=== PATIENT | male | born 1960 | race Caucasian/White ===

== ENCOUNTER 2022-08-15 08:00 | Observation (INO) | payer MEDICARE, MEDICAID ==
[~2022-08-15 08:00] MED LIST: Lactated Ringers 1,000 ML IV SCH; Sodium Chloride 0.9% 10 ML Syringe FLUSH PRN
[2022-08-15 08:38] LABS: BASOPHILS ABSOLUTE AUTO 0.01 K/mm3 (0.01-0.08); BASOPHILS PERCENT AUTO 0.2 % (0.1-1.2); EOSINOPHILS ABSOLUTE AUTO 0.15 K/mm3 (0.04-0.54); EOSINOPHILS PERCENT AUTO 2.7 (0.8-7.0); HEMATOCRIT 44.3 % (40.1-51.0); HEMOGLOBIN 14.9 gm/dl (13.7-17.5); IMMATURE GRAN ABSOLUTE AUTO 0.01 K/mm3 (0.00-0.10); IMMATURE GRAN PERCENT AUTO 0.2 % (<=1.0); LYMPHOCYTES ABSOLUTE AUTO 1.75 K/mm3 (1.32-3.57); LYMPHOCYTES PERCENT AUTO 31.4 % (21.8-53.1); MEAN CORPUSCULAR HEMOGLOBIN 31.5 pg (25.7-32.2); MEAN CORPUSCULAR HGB CONC 33.6 g/dl (32.2-35.5); MEAN CORPUSCULAR VOLUME 93.7 fl (79.0-92.2); MEAN PLATELET VOLUME 10.4 fl (9.4-12.3); MONOCYTES ABSOLUTE AUTO 0.63 K/mm3 (0.30-0.82); MONOCYTES PERCENT AUTO 11.3 % (5.3-12.2); NEUTROPHILS ABSOLUTE AUTO 3.02 K/mm3 (1.78-5.38); NEUTROPHILS PERCENT AUTO 54.2 % (34.0-67.9); PLATELET COUNT,PLT 209 K/mm3 (163-337); RED BLOOD CELL COUNT 4.73 M/mm3 (4.63-6.08); WHITE BLOOD CELL COUNT,WBC 5.57 K/mm3 (4.23-9.07)
[2022-08-15 08:45] LABS: ANION GAP 13.5 (5-15); CALCIUM 8.9 mg/dL (8.5-10.1); EST CRCL DRUG DOSING (CG) 70.42 mL/min; POTASSIUM,K 3.5 mEq/L (3.5-5.1)
[2022-08-15] MEDS ORDERED: Lidocaine 1% 50 ML MDV ONE (08:54)
[2022-08-15] MEDS ORDERED: Bupivacaine 0.5%/EPINEPHrine 1:200,000 50 ML MDV ONE (08:54)
[2022-08-15] MEDS ORDERED: Phenylephrine 1% 10 MG/ML SDV ONE (09:29)
[2022-08-15] MEDS ORDERED: Propofol 200 MG/20 ML SDV ONE (09:30)
[2022-08-15] MEDS ORDERED: Rocuronium 50 MG/5 ML Vial ONE (09:30)
[2022-08-15] MEDS ORDERED: fentaNYL 250 MCG/5 ML SDV ONE (09:30)
[2022-08-15] MEDS ORDERED: Midazolam 1 MG/ML 2 ML SDV ONE (09:30)
[2022-08-15] MEDS ORDERED: Lidocaine 1% 5 ML VIAL ONE (09:30)
[2022-08-15] MEDS ORDERED: ceFAZolin 2 GM Vial ONE (10:28)
[2022-08-15] MEDS ORDERED: Dexamethasone 4 MG/ML 5 ML MDV ONE (10:31)
[2022-08-15] MEDS ORDERED: Ondansetron 4 MG/2 ML SDV ONE ×2 (10:31→13:08)
[2022-08-15] MEDS ORDERED: Lactated Ringers 1,000 ML ONE (11:27)
[2022-08-15] MEDS ORDERED: Ondansetron 4 MG/2 ML SDV IVPUSH PRN ×2 (12:41→13:01)
[2022-08-15] MEDS ORDERED: Docusate Sodium 100 MG Cap PO PRN (12:41)
[2022-08-15] MEDS ORDERED: Morphine 2 MG/ML SYRINGE IVPUSH PRN (12:41)
[2022-08-15] MEDS ORDERED: ALPRAZolam 0.25 MG Tab PO PRN (12:47)
[2022-08-15] MEDS ORDERED: HYDROmorphone 0.5 MG/0.5 ML Syringe IVPUSH PRN (13:01)
[2022-08-15] MEDS ORDERED: fentaNYL 100 MCG/2 ML SDV IVPUSH PRN (13:01)
[2022-08-15] MEDS: Sodium Chloride 0.9% 10 ML Syringe FLUSH SCH (14:16)
[2022-08-15] MEDS: ceFAZolin 2 GM in Sodium Chloride 0.9% 50 ML IV SCH ×2 (14:32→20:34)
[2022-08-15] MEDS: Acetaminophen 325 MG Tab PO SCH ×2 (14:34→20:15)
[2022-08-15] MEDS ORDERED: Enoxaparin 40 MG/0.4 ML Syringe SUBCUT SCH (20:00)
[2022-08-15] MEDS ORDERED: Acetaminophen 325 MG Supp ONE (20:04)
[2022-08-15] MEDS ORDERED: Oxybutynin 5 MG Tab PO SCH (21:00)
[2022-08-16] MEDS: Acetaminophen 325 MG Tab PO SCH ×2 (00:27→06:17)
[2022-08-16] MEDS: oxyCODONE 5 MG Tab PO PRN ×2 (00:27→06:17)
[2022-08-16] MEDS ORDERED: Citalopram 10 MG Tab PO SCH (09:00)
== END 2022-08-16 10:45 | disposition home or self-care (01) ==
LOC: JD.SDS 08:00 → JD.MS 12:41
PROVIDERS: ADMIT Surgery; ATTEND Surgery
DX: K40.31 Unilateral inguinal hernia, with obstruction, without gangrene, recurrent (principal); E78.00 Pure hypercholesterolemia, unspecified; I10 Essential (primary) hypertension; F41.9 Anxiety disorder, unspecified; Z79.899 Other long term (current) drug therapy
CPT/HCPCS: 36415; 49521; 80048; 85025; 96365; 96375; A9270; G0378; J0690; J1100; J1650; J2001; J2250; J2270; J2370; J2405; J2704; J3010; J3490; J7120; C1781